=== PATIENT | female | born 2000 | race Asian ===

== ENCOUNTER → 2022-10-28 | Outpatient (CLI) | payer OTHER | LOC: M RAD 08:40 | PROVIDERS: ATTEND Obstetrics & Gynecology | DX: O36.5930 Maternal care for other known or suspected poor fetal growth, third trimester, not applicable or unspecified (principal); Z3A.37 37 weeks gestation of pregnancy ==

== ENCOUNTER 2022-11-19 09:11 | Inpatient (IN) | payer OTHER ==
[2022-11-19] VITALS (47 sets, daily range): BP systolic 98–161; BP diastolic 63–105
[~2022-11-19] VITALS: Ht 162.6 cm; Wt 66.0 kg
[2022-11-19] MEDS ORDERED: PRENTAB9 PO (09:42)
[2022-11-19] MEDS ORDERED: ACET325C5 PO (09:43)
[2022-11-19] MEDS ORDERED: TRANEXAMIC ACID INJection 1,000 MG in NS 100 ML IV PRN (12:05)
[2022-11-19] MEDS ORDERED: LACTATED RINGER'S 1000 ML IV STA (12:05)
[2022-11-19] MEDS ORDERED: METHYLERGONOVINE MALEATE 0.2MG/ML 1ML VIAL IM PRN (12:05)
[2022-11-19] MEDS ORDERED: LIDOCAINE 1% MDV 20ML VIAL INFIL PRN (12:05)
[2022-11-19] MEDS ORDERED: CARBOPROST TROMETHAMINE 250 MCG/ML AMP IM PRN (12:05)
[2022-11-19] MEDS ORDERED: LR 1,000 ML IV SCH ×2 (12:05→19:45)
[2022-11-19] MEDS ORDERED: OXYTOCIN DRIP 30 UNITS in IV 1 EA IV PRN (12:05)
[2022-11-19 12:51] LABS: HEMATOCRIT 38.8 % (36.0-47.0); HEMOGLOBIN 12.3 g/dl (12.0-15.5); MEAN CORPUSCULAR HEMOGLOBIN 25.4 pg (27.0-33.0); MEAN CORPUSCULAR HGB CONC 31.7 g/dl (32.0-36.5); MEAN CORPUSCULAR VOLUME 80.2 fl (80.0-96.0); PLATELET COUNT, AUTOMATED 328 10^3/uL (150-450); RED BLOOD COUNT 4.84 10^6/uL (4.00-5.40); WHITE BLOOD COUNT 10.9 10^3/uL (4.0-10.0)
[2022-11-19] MEDS ORDERED: ePHEDrine SULFATE 25 MG/5 ML(5MG/ML) SYRINGE IVP PRN (13:10)
[2022-11-19] MEDS ORDERED: diphenhydrAMINE 50MG/ML VIAL IV PRN (13:10)
[2022-11-19] MEDS ORDERED: NALOXONE INJ 0.4MG/1ML VIAL IV PRN (13:10)
[2022-11-19] MEDS ORDERED: EPIDURAL/PCA KEYS XX PRN (13:10)
[2022-11-19] MEDS ORDERED: ONDANSETRON 4MG 2ML VIAL IV PRN ×2 (13:10→19:45)
[2022-11-19] MEDS ORDERED: FENTANYL/ROPIVACAINE/NACL BAG 100 ML EPIDURAL SCH (13:10)
[2022-11-19] MEDS ORDERED: LR 500 ML IV PRN (13:10)
[2022-11-19 19:26] LABS: CORD GAS ABE V -4.7; CORD GAS O2 SAT V 76.2 %; CORD GAS PCO2 V 41.2 mmHg; CORD GAS PH V 7.326 UNITS; CORD GAS PO2 V 33.8 mmHg; CORD GAS SBC V 20.1 MEQ/L; CORD GAS TCO2 V 22.3 MEQ/L
[2022-11-19] MEDS ORDERED: OXYTOCIN 30UNITS IN 0.9% NaCl 500ML IV BAG As Ordered ONE (19:32)
[2022-11-19] MEDS: ACETAMINOPHEN 500 MG TAB PO SCH (19:45)
[2022-11-19] MEDS ORDERED: RHOGAM 300MCG (1500IU) INJ IM SCH (19:45)
[2022-11-19] MEDS ORDERED: DOCUSATE SODIUM 100MG CAPSULE PO PRN (19:45)
[2022-11-19] MEDS ORDERED: METOCLOPRAMIDE INJ 10MG/2ML VIAL IV PRN (19:45)
[2022-11-19] MEDS ORDERED: OXYTOCIN DRIP 30 UNITS in IV 1 EA IV SCH (19:45)
[2022-11-19] MEDS ORDERED: DIBUCAINE 1% OINTMENT 30GM TOP PRN (19:45)
[2022-11-19] MEDS ORDERED: METHYLERGONOVINE MALEATE 0.2 MG TAB PO PRN (19:45)
[2022-11-20] MEDS: IBUPROFEN 800 MG TAB PO SCH ×4 (01:00→22:24)
[2022-11-20 01:05] VITALS: BP 105/65
[2022-11-20] MEDS: ACETAMINOPHEN 500 MG TAB PO SCH ×4 (01:47→19:40)
[2022-11-20 05:35] VITALS: BP 107/63
[2022-11-20] MEDS: PRENATAL VITAMINS CHEWABLE TABLET PO SCH (07:30)
[2022-11-20 07:50] LABS: HEMATOCRIT 25.9 % (36.0-47.0); MEAN CORPUSCULAR HEMOGLOBIN 25.7 pg (27.0-33.0); MEAN CORPUSCULAR HGB CONC 31.3 g/dl (32.0-36.5); MEAN CORPUSCULAR VOLUME 82.2 fl (80.0-96.0); RED BLOOD COUNT 3.15 10^6/uL (4.00-5.40); WHITE BLOOD COUNT 17.6 10^3/uL (4.0-10.0)
[2022-11-20 07:52] LABS: HEMOGLOBIN 8.1 g/dl (12.0-15.5); PLATELET COUNT, AUTOMATED 212 10^3/uL (150-450)
[2022-11-20] MEDS ORDERED: PRENATAL VITAMINS CHEWABLE TABLET PO SCH (09:00)
[2022-11-20 18:00] VITALS: BP_SYST 116; BP_SYST 121; BP_DIAS 63; BP_DIAS 71
[2022-11-20 18:07] VITALS: BP 121/71
[2022-11-21] MEDS: ACETAMINOPHEN 500 MG TAB PO SCH ×3 (01:48→14:36)
[2022-11-21 06:00] VITALS: BP 109/64
[2022-11-21] MEDS: IBUPROFEN 800 MG TAB PO SCH ×2 (06:14→14:37)
[2022-11-21] MEDS: PRENATAL VITAMINS CHEWABLE TABLET PO SCH (08:04)
[2022-11-21] MEDS ORDERED: FERROUS SULFATE 325MG TAB PO SCH (09:00)
[2022-11-21] MEDS ORDERED: MEASLES,MUMPS,RUBELLA VACCINE INJ (MMR-II) SC.IMMUN ONE (09:00)
[2022-11-21 09:30] LABS: HEMATOCRIT 26.9 % (36.0-47.0); HEMOGLOBIN 8.1 g/dl (12.0-15.5); MEAN CORPUSCULAR HEMOGLOBIN 25.3 pg (27.0-33.0); MEAN CORPUSCULAR HGB CONC 30.1 g/dl (32.0-36.5); MEAN CORPUSCULAR VOLUME 84.1 fl (80.0-96.0); PLATELET COUNT, AUTOMATED 210 10^3/uL (150-450); WHITE BLOOD COUNT 9.2 10^3/uL (4.0-10.0)
[2022-11-21 18:00] VITALS: BP 116/73
== END 2022-11-21 18:45 | disposition home or self-care (01) | DRG 807 ==
LOC: M LDO 09:11 → M LDI 09:34 → M OBS 11-20 00:46
PROVIDERS: ADMIT Registered Nurse; ATTEND Obstetrics & Gynecology
PROC: 10E0XZZ Delivery of Products of Conception, External Approach (ICD-10-PCS; principal; 2022-11-19)
PROC: 0KQM0ZZ Repair Perineum Muscle, Open Approach (ICD-10-PCS; 2022-11-19)
PROC: 0HQ9XZZ Repair Perineum Skin, External Approach (ICD-10-PCS; 2022-11-19)
DX: O70.1 Second degree perineal laceration during delivery (principal); Z37.0 Single live birth; Z3A.39 39 weeks gestation of pregnancy; O70.0 First degree perineal laceration during delivery

== ENCOUNTER 2024-03-22 06:11 | Day surgery (SDC) | payer OTHER ==
[~2024-03-22] VITALS: Ht 162.6 cm; Wt 60.7 kg
[~2024-03-22 06:11] MED LIST: ACET325C5 PO; LORY1TAB2 PO; PRENTAB9 PO
[2024-03-22 06:45] LABS: HEMATOCRIT 41.5 % (36.0-47.0); HEMOGLOBIN 12.8 g/dl (12.0-15.5)
[2024-03-22] MEDS: LR 1,000 ML IV SCH (06:49)
[2024-03-22] MEDS ORDERED: propofoL 200 MG/20 ML VIAL As Ordered ONE (07:02)
[2024-03-22] MEDS ORDERED: ONDANSETRON 4MG 2ML VIAL As Ordered ONE (07:05)
[2024-03-22] MEDS ORDERED: LIDOCAINE 2% 100MG/5ML SDV (FOR ANES.) As Ordered ONE (07:05)
[2024-03-22] MEDS ORDERED: MIDAZOLAM INJ 2MG/2ML VIAL As Ordered ONE (07:09)
[2024-03-22] MEDS ORDERED: fentaNYL 100 MCG/2 ML INJECTION As Ordered ONE (07:09)
[2024-03-22] MEDS ORDERED: KETOROLAC 60MG 2ML VIAL As Ordered ONE (07:57)
[2024-03-22] MEDS ORDERED: ACETAMINOPHEN 1000MG 100ML IV BAG As Ordered ONE (07:58)
[2024-03-22] MEDS: LIDOCAINE 1% SDV 30ML VIAL As Ordered ONE (08:10)
[2024-03-22] MEDS: SILVER NITRATE APPLICATOR (1 = QTY 10) As Ordered ONE (08:10)
[2024-03-22 08:26] VITALS: BP 138/75; TEMP 97.9; O2SAT 100
[2024-03-22] MEDS: oxyCODONE 5MG TAB PO PRN (09:01)
== END 2024-03-22 09:05 | disposition home or self-care (01) ==
LOC: M SDC 06:11
PROVIDERS: ATTEND Obstetrics & Gynecology
DX: N84.0 Polyp of corpus uteri (principal); Z79.899 Other long term (current) drug therapy
CPT/HCPCS: 36415; 58558; 81025; 85014; 85018; 88305; J0131; J1100; J1885; J2250; J2405; J3010